=== PATIENT | male | born 1965 | race Caucasian/White ===

== ENCOUNTER 2024-02-09 17:21 | Emergency (ER) | payer SELFPAY ==
[2024-02-09 17:22] VITALS: BP 151/91
--- NOTE | 2024-02-09 18:23 | ED.GENMED ---
History of Present Illness
General
Chief Complaint: Skin Surface Trauma
Source: patient
Exam Limitations: none
Time Seen by Provider: 02/09/24 18:01
Nursing documentation reviewed up to this point in time: agreed with
Travel History
Have you had any contact with someone who has COVID-19?: No
Do you have any symptoms of coronavirus? Fever > 100 degrees, chills, cough, shortness of breath, sore throat, loss of taste or smell, muscle aches, or headache?: No
History of Present Illness
History of Present Illness:
59-year-old male with history of CAD, status post stent x 3 presents for a slip and fall while at work today causing a laceration on his left anterior lower leg. Patient says that the stool he was on broke and he slid down scraping his leg on part
of the step. He went to urgent care initially where he was given a tetanus vaccine but unfortunately the provider was unable to sew up his wound because of a personal hand injury. Patient is here for sutures. He has some pain localized to where
the skin is but no significant swelling. No uncontrolled bleeding. No blood thinners. This is a Workmen's Comp. injury
Past History
Past History
ED Past Medical History: CAD and Other (Ulcerative colitis)
ED Past Surgical History: Cardiac
Social History
Tobacco: Non-smoker
Alcohol: None
Personal:
Review of Systems
Review of Systems
Allergies reviewed?: Yes
All Other Systems: Not applicable
Phy Exam
Physical Exam
Physical Exam:
GENERAL: Alert , in no apparent distress, comfortable at rest
HEAD: NCAT
NEUROLOGICAL: Alert and oriented, no focal neuro deficits, , 5/5 strength, sensation intact,
SKIN: Warm and dry, irregular flap laceration 1 cm anterior left lower leg
no significant swelling
MUSCULOSKELETAL:laceration left lower leg anterior
no active bleeding
slightly tender to palpation but full rom of the leg, weight bearing
no suspicion of retained fb
PSYCH: Normal and appropriate interaction.
Course
Vital Signs
Initial and Last Documented VS:
Initial Vital Signs
Temp Pulse Resp BP Pulse Ox
98.0 F 61 18 151/91 98
02/09/24 17:22 02/09/24 17:22 02/09/24 17:22 02/09/24 17:22 02/09/24 17:22
Last Documented Vital Signs
Temp Pulse Resp BP Pulse Ox
98.0 F 61 18 151/91 98
02/09/24 17:22 02/09/24 17:22 02/09/24 17:22 02/09/24 17:22 02/09/24 17:22
Procedures
Laceration Closure
Left Lower Leg:
Status of Wound: clean
Size of Wound in cm: 2
Description of Wound Edges: ragged
Preparation: cleaned with saline
Anesthesia: 1% Lidocaine with epi
Revision/Debridement: minor revision and irrigate-direct pressure
Wound exploration: foreign body removed (tissue (pt used a tissue to holdpressure))
Type of Closure: single layer closure
Skin Closure Material: 4-0 nylon
Number of sutures: 4
*Critical Care Note
Total Time (30-74mins, 75-104mins- exclusive of procedures): Not Applicable
ED Attending Note
-
Portions of this chart may have been created with voice recognition software.� Occasional wrong word or��sound alike� substitutions may have occurred due to the inherent limitations of voice recognition software.
Discharge Plan
Departure
Patient Disposition: Home (Routine Discharge)
Date of Disposition: 02/09/24
Time of Disposition: 18:52
Patient with high blood pressure during this ER visit?: Yes
Condition: Fair
Covid-19: Not Applicable
Discharge Problem:
Laceration of left lower extremity
Instructions: Laceration Repair With Stitches (DC), BLOOD PRESSURE
Prescriptions:
No Action
multivitamin [Daily Vitamin] 1 EACH tablet
1 ea PO DAILY
acetaminophen 325 MG tablet
325 mg PO Q4HPRN PRN (Reason: pain)
qityawbv-ihsfk-qikbd-CF borate [[facility]] 1 EACH tablet
2 tab PO DAILY
aspirin 81 MG tablet,chewable
81 mg PO DAILY
lisinopril 2.5 MG tablet
2.5 mg PO DAILY
ezetimibe 10 MG tablet
10 mg PO DAILY
rosuvastatin 40 MG tablet
10 mg PO DAILY
metoprolol succinate 12.5 MG tablet extended release 24 hr
12.5 mg PO DAILY Qty: 30 0RF
Vitamin C:
1,000 mg PO HS
Vitamin D3:
1,000 units PO DAILY
hydrocodone-acetaminophen 1 TABLET tablet
1 tab PO Q4HPRN PRN (Reason: moderate to severe pain) Qty: 25 0RF
tamsulosin 0.4 MG capsule
0.4 mg PO DAILY Qty: 30 0RF
cyclobenzaprine 10 MG tablet
10 mg PO BIDPRN PRN (Reason: spasm) Qty: 14 0RF
diclofenac potassium 50 MG tablet
50 mg PO BID Qty: 20 0RF
Referrals:
Sidney Phillip DO [Family Provider] - Follow up in 10 days (for suture removal)
Activity Restrictions/Additional Instructions:
KEEP THE WOUND CLEAN AND DRY FOR 24 HOURS
AFTER THAT YOU CAN GET IT WET IN THE BATH/SHOWER ONCE A DAY AND MAKE SURE IT IS CLEAN AND THERE IS NO DRIED BLOOD ON THE STITCHES
APPLY NEOSPORIN AND A BANDAID
THE STITCHES NEED TO BE REMOVED IN ABOUT 7-10 DAYS, SEE YOUR DOCTOR FOR THIS. (OR WORKMAN'S COMP)
THE LAST DAY BEFORE STITCHES OUT, NO OINTMENT, LEAVE OPEN TO AIR
WATCH FOR SIGNS OF INFECTION AND RETURN NEEDED FOR PAIN, SWELLING, REDNESS, DRAINAGE, BLEEDING.
MOTRIN NEEDED FOR PAIN.
Interventions
Interventions:
*Risk Screen - Suicide Last Done: 02/09/24 17:22
*General Assessment Last Done: 02/09/24 17:22
*Neglect/Abuse Screening Last Done: 02/09/24 17:22
ED- Fall Risk Assessment Last Done: 02/09/24 18:57
*ED COVID-19 Vaccine History Last Done: 02/09/24 17:22
*Nursing Disposition Last Done: 02/09/24 18:57
Discharge Date and Time
Discharge Date/Time: 02/09/24 18:58
Print Language: BELIZEAN
== END 2024-02-09 18:58 | disposition home or self-care (01) ==
LOC: EMR 17:21
PROVIDERS: EMERGENCY PHYSICIAN Emergency Medicine; FAMILY PHYSICIAN Family Medicine
DX: S81.812A Laceration without foreign body, left lower leg, initial encounter (principal); W01.0XXA Fall on same level from slipping, tripping and stumbling without subsequent striking against object, initial encounter; I25.10 Atherosclerotic heart disease of native coronary artery without angina pectoris
CPT/HCPCS: 99283

== ENCOUNTER 2024-09-03 13:28 | Emergency (ER) | payer BC, SELFPAY ==
[2024-09-03 13:43] VITALS: BP 152/87
--- NOTE | 2024-09-03 14:29 | ED.MUSCINJ ---
HPI-Injury
General
Chief Complaint: Musculo-Skeletal Complaint
Time Seen by Provider: 09/03/24 14:05
History of Present Illness-Injury
Initial Injury comments:
59-year-old male with history of CAD, hypertension, total colectomy presenting to the emergency department with left thigh pain. Patient reports yesterday he thought he was going to fall, tried to catch himself process, felt a pop in his left thigh
region. He has since had pain in the left gluteal region with radiation down his left thigh. Denies fall to the ground. Denies numbness or tingling to the leg. Denies weakness. He has been taking ibuprofen and a muscle relaxer at home. He has
been able to ambulate. He denies chest pain, difficulty breathing, abdominal pain. He denies fever or recent illness. He denies additional acute medical complaints.
Past History
Past History
ED Past Medical History: CAD and Other (Ulcerative colitis)
ED Past Surgical History: Cardiac
Social History
Tobacco: Non-smoker
Alcohol: None
Personal:
Phy Exam
Physical Exam
Physical Exam:
General: Well-appearing, no clinical signs of dehydration, nontoxic and in no acute distress
HEENT: protecting airway
Neck: appears supple
CV: Normal heart rate
Resp: No accessory muscle use, no increased work of breathing
Abd: No distention
Extremities: Range of motion intact to the left lower extremity. Distal sensation and pulses intact. No erythema. Generalized tenderness to the left gluteal region extending into the left upper thigh.
Neuro: alert, no focal neurologic deficit
: deferred
Rectal: deferred
Psych: Normal affect
Skin: Intact
Injury Course
Orders/Labs/Results
Orders:
Orders
09/03/24 14:28
Ketorolac [Toradol] 15 mg IM NOW STA
MDM/Problems Addressed
MDM/Problems Addressed:
59-year-old male presenting for left lower extremity pain. Vital signs on arrival are normal.
On exam patient is well-appearing, no acute distress. Overall benign examination of the left lower extremity. No deformity, no swelling. Patient able to ambulate. Distal sensation and pulses intact. Without any neurovascular compromise. No
infectious findings. Ultimately suspect musculoskeletal injury, possible hamstring injury. No indication for advanced imaging at this time. Feel stable for discharge with outpatient supportive therapy. Will provide a prescription for steroid
pack. Advised continued use of NSAIDs. Patient also has muscle relaxers at home. Cautioned against somnolence. Advised outpatient orthopedic follow-up if symptoms are persisting, may indicate need for MRI. Return precautions discussed and
patient verbalized understanding
*Critical Care Note
Total Time (30-74mins, 75-104mins- exclusive of procedures): Not Applicable
ED Attending Note
-
Portions of this chart may have been created with voice recognition software.� Occasional wrong word or��sound alike� substitutions may have occurred due to the inherent limitations of voice recognition software.
Discharge Plan
Departure
Prescriptions:
No Action
multivitamin [Daily Vitamin] 1 EACH tablet
1 ea PO DAILY
acetaminophen 325 MG tablet
325 mg PO Q4HPRN PRN (Reason: pain)
goeqotos-ulqxs-uoqoq-CF borate [[facility]] 1 EACH tablet
2 tab PO DAILY
aspirin 81 MG tablet,chewable
81 mg PO DAILY
lisinopril 2.5 MG tablet
2.5 mg PO DAILY
ezetimibe 10 MG tablet
10 mg PO DAILY
rosuvastatin 40 MG tablet
10 mg PO DAILY
metoprolol succinate 12.5 MG tablet extended release 24 hr
12.5 mg PO DAILY Qty: 30 0RF
Vitamin C:
1,000 mg PO HS
Vitamin D3:
1,000 units PO DAILY
hydrocodone-acetaminophen 1 TABLET tablet
1 tab PO Q4HPRN PRN (Reason: moderate to severe pain) Qty: 25 0RF
tamsulosin 0.4 MG capsule
0.4 mg PO DAILY Qty: 30 0RF
cyclobenzaprine 10 MG tablet
10 mg PO BIDPRN PRN (Reason: spasm) Qty: 14 0RF
diclofenac potassium 50 MG tablet
50 mg PO BID Qty: 20 0RF
Interventions
Interventions:
*Risk Screen - Suicide Last Done: 09/03/24 13:44
*General Assessment Last Done: 09/03/24 14:01
*Neglect/Abuse Screening Last Done: 09/03/24 13:44
*ED COVID-19 Vaccine History Last Done: 09/03/24 14:01
ED-Musculoskeletal Assessment Last Done: 09/03/24 14:01
Discharge Date and Time
Print Language: SPANISH
[2024-09-03] MEDS: TORADOL 15 MG IM (14:43)
[2024-09-03 14:48] VITALS: BP 150/80
== END 2024-09-03 15:17 | disposition home or self-care (01) ==
LOC: EMR 13:28
PROVIDERS: EMERGENCY PHYSICIAN Student in an Organized Health Care Education/Training Program
DX: S76.912A Strain of unspecified muscles, fascia and tendons at thigh level, left thigh, initial encounter (principal); X58.XXXA Exposure to other specified factors, initial encounter; I25.10 Atherosclerotic heart disease of native coronary artery without angina pectoris; I10 Essential (primary) hypertension; K51.90 Ulcerative colitis, unspecified, without complications
CPT/HCPCS: 99282; 96372

== ENCOUNTER → 2024-09-28 07:40 | Outpatient (REF) | payer BC, SELFPAY | LOC: HWRAD 07:40 | PROVIDERS: ATTENDING PHYSICIAN Specialist; FAMILY PHYSICIAN Family Medicine | DX: N20.0 Calculus of kidney (principal); Z80.42 Family history of malignant neoplasm of prostate | CPT/HCPCS: 74018; 76770 ==

== ENCOUNTER 2024-11-25 08:35 | Emergency (ER) | payer BC, SELFPAY ==
[2024-11-25 08:36] VITALS: BP 147/91
[2024-11-25 09:01] LABS: COVID-19 Antigen Positive (Negative)
--- NOTE | 2024-11-25 09:12 | ED.GENMED ---
History of Present Illness
General
Chief Complaint: Dehydration Symptoms
Source: patient and spouse
Exam Limitations: none
Time Seen by Provider: 11/25/24 09:04
History of Present Illness
History of Present Illness:
See MDM
Past History
Past History
ED Past Medical History: CAD and Other (Ulcerative colitis)
ED Past Surgical History: Cardiac
Social History
Tobacco: Non-smoker
Alcohol: None
Personal:
Phy Exam
Physical Exam
Physical Exam:
See MDM
Course
Orders/Labs/Results
Orders:
Orders
11/25/24 08:42
COVID-19 Antigen Urgent
Source: Nasal Swab
Influenza A+B Rapid Molecular Urgent
CELINE Source: Nasal Swab
Specimen Description:
11/25/24 09:11
0.9% Sodium Chloride 1000 ml [Nss] 1,000 ml IV BOLUS
11/25/24 09:46
Complete Blood Count/With Diff Urgent
Comprehensive Metabolic Panel Urgent
Magnesium Urgent
STOOL [C difficile Antigen & Toxins] Urgent
CELINE Source: Feces/Stool
Specimen Description:
Date Specimen was Collected: 11/25/24
Time Specimen was Collected: 09:43
Stool Culture Urgent
CELINE Source: Feces/Stool
Specimen Description:
Date Specimen was Collected: 11/25/24
Time Specimen was Collected: 09:43
11/25/24 10:30
0.9% Sodium Chloride 1000 ml [Nss] 1,000 ml IV BOLUS
Abnormal Lab Results
11/25/24 11/25/24
08:42 09:46
MCH 31.5 H pg
(27.0-31.0)
MCHC 37.1 H g/dL
(33.0-37.0)
Abs Immat Gran (auto) 0.1 H 10^3/uL
(0-0.05)
Absolute Monos (auto) 1.2 H 10^3/uL
(0.1-0.6)
Immature Gran % 0.8 H %
(0-0.5)
Lymphocytes % 16.1 L %
(20.5-51.1)
Monocytes % 14.8 H %
(1.7-9.3)
Sodium 131 L mmol/L
(135-145)
Carbon Dioxide 20 L mmol/L
(22-30)
BUN 79 H mg/dl
(9-20)
Creatinine 2.2 H mg/dL
(0.7-1.3)
Magnesium 3.1 H mg/dl
(1.6-2.3)
AST 71 H U/L
(17-59)
ALT 72 H U/L
(0-50)
Total Protein 8.6 H g/dl
(6.3-8.2)
Albumin 5.2 H g/dl
(3.5-5.0)
SARS-CoV-2 Antigen Positive A
(Negative)
11/25/24 09:46
11/25/24 09:46
Vital Signs
Initial and Last Documented VS:
Initial Vital Signs
Temp Pulse Resp BP Pulse Ox
98.0 F 106 20 147/91 96
11/25/24 08:36 11/25/24 08:36 11/25/24 08:36 11/25/24 08:36 11/25/24 08:36
Last Documented Vital Signs
Temp Pulse Resp BP Pulse Ox
98.0 F 84 19 138/83 95
11/25/24 08:36 11/25/24 11:00 11/25/24 11:00 11/25/24 11:00 11/25/24 10:45
MDM/Problems Addressed
Differential Diagnosis Includes:
HPI and MDM Narrative:
59-year-old male presenting for evaluation of generalized fatigue. Patient believes he is dehydrated. He recently returned from vacation. Once he landed on his vacation, he developed flulike symptoms. This has been ongoing for the past several
days. Patient states he has been trying to drink plenty of fluid but he has significant amount of diarrhea. He states his colostomy bag fills up every 15 to 20 minutes. He denies fevers. He does complain of mild muscle cramping
Exam and story consistent with dehydration. Will provide IV fluids. He is otherwise well-appearing and nontoxic. Viral testing done prior to my evaluation and patient found to be COVID-positive. He is out of the Paxlovid window. Regardless,
will give IV fluids and obtain basic blood work. Will obtain stool cultures and CT
Physical exam
General: Well appearing and non-toxic
HEENT: protecting airway. Dry mucous membranes
Neck: appears supple
CV: No evidence of cyanosis
Resp: No accessory muscle use
Abd: Non-distended. Soft and nontender area around colostomy bag clean and intact
Extremities: No deformities
Neuro: alert
Psych: Normal affect
Skin: Intact
Problems Addressed including Acute and Chronic Conditions affecting care:
1. Dehydration
Acuity: acute
Prognosis: stable
Details: Will give IV fluids and obtain basic blood to look for metabolic abnormalities
2. Diarrhea
Acuity: acute
Prognosis: stable
Details: Likely viral. Will obtain stool culture
Updates
Patient was found to have an elevated creatinine level. After first liter IV fluids, patient still symptomatic. After second liter, patient feels much better and feels comfortable going home. C. difficile negative
Differential Diagnosis (but not limited to): Norovirus, C. difficile, COVID, dehydration
Testing considered: Norovirus testing
Drug therapy (if applicable): OTC meds, please see d/c instruction regarding Rx drugs
Amount and/or Complexity of Data Reviewed
Clinical info obtained from: Patient
External data reviewed: N/A
Labs I independently reviewed (but not limited to): Elevated creatinine, C. difficile negative
Radiology: N/A
Pulse Ox: not hypoxic
EKG independently reviewed: N/A
Labor Trainer: N/A
Critical Care: N/A
Risk of Complication:
Social Determinants of health: Good social support
Discussed with other providers: N/A
Escalation of Care includes Admit/Obs: After being observed in the Emergency Department, pt stable for discharge.
Occasional wrong word or 'sound a like' substitutions may have occurred due to the inherent limitations of voice recognition software. Read the chart carefully and recognize, using context, where substitutions have occurred.
*Critical Care Note
Total Time (30-74mins, 75-104mins- exclusive of procedures): Not Applicable
ED Attending Note
-
Portions of this chart may have been created with voice recognition software.� Occasional wrong word or��sound alike� substitutions may have occurred due to the inherent limitations of voice recognition software.
Discharge Plan
Departure
Patient Disposition: Home (Routine Discharge)
Date of Disposition: 11/25/24
Time of Disposition: 12:44
Patient with high blood pressure during this ER visit?: No
Discharge Problem:
Acute dehydration
Instructions: Dehydration, Adult (DC)
Prescriptions:
No Action
multivitamin [Daily Vitamin] 1 EACH tablet
1 ea PO DAILY
acetaminophen 325 MG tablet
325 mg PO Q4HPRN PRN (Reason: pain)
cvewtszv-rsixw-relet-CF borate [[facility]] 1 EACH tablet
2 tab PO DAILY
aspirin 81 MG tablet,chewable
81 mg PO DAILY
lisinopril 2.5 MG tablet
2.5 mg PO DAILY
ezetimibe 10 MG tablet
10 mg PO DAILY
rosuvastatin 40 MG tablet
10 mg PO DAILY
metoprolol succinate 12.5 MG tablet extended release 24 hr
12.5 mg PO DAILY Qty: 30 0RF
Vitamin C:
1,000 mg PO HS
Vitamin D3:
1,000 units PO DAILY
hydrocodone-acetaminophen 1 TABLET tablet
1 tab PO Q4HPRN PRN (Reason: moderate to severe pain) Qty: 25 0RF
tamsulosin 0.4 MG capsule
0.4 mg PO DAILY Qty: 30 0RF
cyclobenzaprine 10 MG tablet
10 mg PO BIDPRN PRN (Reason: spasm) Qty: 14 0RF
diclofenac potassium 50 MG tablet
50 mg PO BID Qty: 20 0RF
methylprednisolone [Medrol (Arturo)] 4 mg tablets,dose pack
See Rx Instructions .ROUTE .COMPLEX Qty: 21 0RF
Rx Instructions:
for 6 days
Referrals:
Sidney Phillip DO [Family Provider] -
Activity Restrictions/Additional Instructions:
Please return for any worsening symptoms.
You may return at any time if you have further concerns.
Please follow up with your doctor at the first available appointment, preferably this week.
Thank you for choosing [facility].
Interventions
Interventions:
*General Assessment Last Done: 11/25/24 09:53
ED- Fall Risk Assessment Last Done: 11/25/24 09:54
*ED COVID-19 Vaccine History Last Done: 11/25/24 09:53
QB-Oyffoh-Dwzdzjqtqc Assessment Last Done: 11/25/24 09:55
ED- Cardiac Assessment Last Done: 11/25/24 09:55
ED- Neurological Assessment Last Done: 11/25/24 09:55
ED- Pulmonary Assessment Last Done: 11/25/24 09:55
Discharge Date and Time
Print Language: ITALIAN
[2024-11-25 09:53] VITALS: BMI 29.4
[2024-11-25 09:57] VITALS: BP 138/93
[2024-11-25 10:00] VITALS: BP 138/87
[2024-11-25 10:01] LABS: % Basophils 0.4 % (0-2); % Eosinophils 0.3 % (0-6); % Immature Granulocytes 0.8 % (0-0.5); % Lymphocytes 16.1 % (20.5-51.1); % Monocytes 14.8 % (1.7-9.3); % Neutrophils 67.6 % (42.2-75.2); Absolute Immature Granulocytes 0.1 10^3/uL (0-0.05); Absolute Lymphocytes 1.3 10^3/uL (1.2-3.4); Absolute Monocytes 1.2 10^3/uL (0.1-0.6); Absolute Neutrophils 5.3 10^3/uL (1.4-6.5); Hematocrit 48.3 % (39.0-52.0); Hemoglobin 17.9 g/dL (13.0-18.0); Mean Corp Hgb Conc. 37.1 g/dL (33.0-37.0); Mean Corpuscular Hgb 31.5 pg (27.0-31.0); Mean Corpuscular Volume 84.9 fL (80.0-94.0); Mean Platelet Volume 9.9 fL (7.4-10.4); Nucleated Red Blood Cells % 0 % (-); Platelet Count 189 10^3/uL (130-400); Red Blood Cell Count 5.69 10^6/uL (4.70-6.10); Red Cell Dist. Width 11.9 % (11.5-14.5); White Blood Cell Count 7.9 10^3/uL (4.8-10.8)
[2024-11-25] MEDS: NSS 1000 IV ×2 (10:07→10:46)
[2024-11-25 10:12] LABS: ALT (SGPT) 72 U/L (0-50); AST (SGOT) 71 U/L (17-59); Albumin 5.2 g/dl (3.5-5.0); Alkaline Phosphatase 87 U/L (38-126); Blood Urea Nitrogen 79 mg/dl (9-20); Calcium 9.6 mg/dl (8.4-10.2); Carbon Dioxide 20 mmol/L (22-30); Chloride 98 mmol/L (98-107); Estimated Creatinine Clearance 38 ml/min; Glucose 96 mg/dl (70-99); Magnesium 3.1 mg/dl (1.6-2.3); Potassium 4.3 mmol/L (3.5-5.1); Sodium 131 mmol/L (135-145); Total Protein 8.6 g/dl (6.3-8.2); eGFR 34.08
[2024-11-25 11:00] VITALS: BP 138/83
[2024-11-25 12:07] VITALS: BP 150/91
[2024-11-25 13:00] VITALS: BP 154/91
== END 2024-11-25 13:23 | disposition home or self-care (01) ==
LOC: EMR 08:35
PROVIDERS: Emergency Medicine; EMERGENCY PHYSICIAN Student in an Organized Health Care Education/Training Program; FAMILY PHYSICIAN Family Medicine
DX: E86.0 Dehydration (principal); I25.10 Atherosclerotic heart disease of native coronary artery without angina pectoris; K51.90 Ulcerative colitis, unspecified, without complications
CPT/HCPCS: 99283; 96360; 96361; 80053; 83735; 85025; 87045; 87046; 87324; 87427; 87449; 87502; 87811

== ENCOUNTER → 2024-12-14 10:12 | Outpatient (REF) | payer BC, SELFPAY | LOC: RCS 10:12 | PROVIDERS: ATTENDING PHYSICIAN Internal Medicine Cardiovascular Disease; FAMILY PHYSICIAN Family Medicine | DX: I25.10 Atherosclerotic heart disease of native coronary artery without angina pectoris (principal); I10 Essential (primary) hypertension | CPT/HCPCS: 93017 ==

== ENCOUNTER 2025-01-01 02:07 | Emergency (ER) | payer BC, SELFPAY ==
[2025-01-01 02:08] VITALS: BMI 28.9
[2025-01-01 02:09] VITALS: BP 170/86
[2025-01-01 02:34] LABS: % Basophils 0.9 % (0-2); % Eosinophils 4.6 % (0-6); % Immature Granulocytes 0.4 % (0-0.5); % Lymphocytes 32.6 % (20.5-51.1); % Monocytes 7.5 % (1.7-9.3); Absolute Basophils 0.1 10^3/uL (0-0.2); Absolute Eosinophils 0.3 10^3/uL (0-0.7); Absolute Lymphocytes 2.2 10^3/uL (1.2-3.4); Absolute Monocytes 0.5 10^3/uL (0.1-0.6); Absolute Neutrophils 3.7 10^3/uL (1.4-6.5); Hematocrit 41.8 % (39.0-52.0); Hemoglobin 14.8 g/dL (13.0-18.0); Mean Corp Hgb Conc. 35.4 g/dL (33.0-37.0); Mean Corpuscular Hgb 31.5 pg (27.0-31.0); Mean Corpuscular Volume 88.9 fL (80.0-94.0); Mean Platelet Volume 9.2 fL (7.4-10.4); Nucleated Red Blood Cells % 0 % (-); Platelet Count 173 10^3/uL (130-400); Red Cell Dist. Width 12.6 % (11.5-14.5); White Blood Cell Count 6.8 10^3/uL (4.8-10.8)
[2025-01-01 02:37] LABS: Urine Albumin 2+ (Neg - Trace); Urine Bilirubin Negative (Negative); Urine Character Slightly Cloudy (Clear); Urine Color Yellow; Urine Glucose Negative (Negative); Urine Ketone Negative (Negative); Urine Leukocyte Negative (Negative); Urine Nitrite Negative (Negative); Urine Occult Blood 4+ (Negative); Urine Specific Gravity 1.025 (<1.030); Urine Urobilinogen Negative (Neg - 1+)
[2025-01-01 02:47] LABS: Urine Squamous Cell >30 /LPF (Few)
[2025-01-01 02:49] LABS: Urine Amorphous Seen; Urine Uric Acid Crystals Seen
[2025-01-01 02:50] LABS: Urine Bacteria Many (Negative); Urine Red Blood Cell >100 /HPF (0-2)
[2025-01-01 02:52] LABS: Urine Mucus Many
[2025-01-01 02:55] LABS: ALT (SGPT) 55 U/L (0-50); AST (SGOT) 37 U/L (17-59); Alkaline Phosphatase 101 U/L (38-126); Blood Urea Nitrogen 25 mg/dl (9-20); Calcium 9.6 mg/dl (8.4-10.2); Carbon Dioxide 18 mmol/L (22-30); Chloride 105 mmol/L (98-107); Glucose 116 mg/dl (70-99); Potassium 3.8 mmol/L (3.5-5.1); Sodium 137 mmol/L (135-145); Total Bilirubin 0.8 mg/dl (0.2-1.3); Total Protein 7.6 g/dl (6.3-8.2); eGFR > 60.00
[2025-01-01 03:16] VITALS: BP 149/84
--- NOTE | 2025-01-01 04:35 | ED.GENMED ---
History of Present Illness
General
Chief Complaint: Flank Pain
Source: patient
Exam Limitations: none
Time Seen by Provider: 01/01/25 04:35
Nursing documentation reviewed up to this point in time: agreed with
History of Present Illness
History of Present Illness:
59-year-old male presents emergency department due to right flank pain. Feels similar when he had a kidney stone in the past.
Past History
Past History
ED Past Medical History: CAD, HTN and Other (Ulcerative colitis)
ED Past Surgical History: Cardiac
Social History
Tobacco: Non-smoker
Alcohol: None
Personal:
Review of Systems
Review of Systems
Allergies reviewed?: Yes
All Other Systems: Not applicable
Constitutional: Reports no symptoms
EENT: Reports no symptoms
Respiratory: Reports no symptoms
Cardiac: Reports no symptoms
ABD/GI: Reports nausea
: Reports flank pain and difficulty voiding
Musculoskeletal: Reports no symptoms
Skin: Reports no symptoms
Neurological: Reports no symptoms
Endocrine: Reports no symptoms
Hematologic/Lymphatic: Reports no symptoms
Psychiatric: Reports no symptoms
Phy Exam
Physical Exam
Physical Exam:
Physical Exam
General: Appears uncomfortable
Neck: supple. no meningeal signs. normal posterior pharynx
Heart: s1/s2 regular rate and rhythm, no murmur. equal radial
pulses.
HEENT: Pupils equal round reactive to light, EOMI
Lungs: no acute respiratory distress. clear bilaterally
Abdomen: normal bowel sounds. not tender. no CVAT, colostomy
Neuro: alert and oriented. no focal neurological deficits cranial nerves II through XII intact
Skin: no rash
Psychiatric: well kept. interactive and cooperative
Extremities: no edema. no calf tenderness. negative homans. good distal pulses
Course
Orders/Labs/Results
Orders:
Orders
01/01/25 02:22
Complete Blood Count/With Diff Urgent
Comprehensive Metabolic Panel Urgent
01/01/25 02:24
Urinalysis Urgent
Date Specimen was Collected: 01/01/25
Time Specimen was Collected: 02:12
Urine Microscopic Urgent
Date Specimen was Collected: 01/01/25
Time Specimen was Collected: 02:12
01/01/25 04:33
Ketorolac [Toradol] 15 mg IV NOW STA
Ondansetron Injectable [Zofran] 4 mg IV NOW STA
01/01/25 04:34
CT Abd/pel Without Iv Or Oral Urgent
Comment:
Reason For Exam: right flank pain, hematuria
Abnormal Lab Results
01/01/25 01/01/25
02:22 02:24
MCH 31.5 H pg
(27.0-31.0)
Carbon Dioxide 18 L mmol/L
(22-30)
BUN 25 H mg/dl
(9-20)
Glucose 116 H mg/dl
(70-99)
ALT 55 H U/L
(0-50)
Urine Occult Blood 4+ A
(Negative)
Urine RBC >100 A /HPF
(0-2)
Urine Bacteria Many A
(Negative)
Urine Albumin 2+ A
(Neg - Trace)
01/01/25 02:22
01/01/25 02:22
Vital Signs
Initial and Last Documented VS:
Initial Vital Signs
Temp Pulse Resp BP Pulse Ox
98.1 F 58 22 170/86 98
01/01/25 02:09 01/01/25 02:09 01/01/25 02:09 01/01/25 02:09 01/01/25 02:09
Last Documented Vital Signs
Temp Pulse Resp BP Pulse Ox
98.1 F 58 22 149/84 95
01/01/25 02:09 01/01/25 02:09 01/01/25 02:09 01/01/25 03:16 01/01/25 03:45
MDM/Problems Addressed
Differential Diagnosis Includes:
UTI, kidney stone
MDM/Problems Addressed:
59-year-old male with right ureteral calculus, no signs UTI. Stable for discharge.
*Radiology
Radiology exam reviewed: radiology read reviewed (CT abdomen pelvis shows right distal ureteral calculus 2 mm)
*Pulse Oximetry
Patient hypoxic: no
*Critical Care Note
Total Time (30-74mins, 75-104mins- exclusive of procedures): Not Applicable
Data Reviewed
Review of Other/Old Records Reveals: Radiology Studies
Source: records (Small stone seen on renal ultrasound bilateral 09/28/2024)
Patient Management
Social determinants of health affecting care: Living situation and Strong social support
Escalation/DeEscalation of care consider admission/obs:
Admit not indicated
ED Attending Note
-
Portions of this chart may have been created with voice recognition software.� Occasional wrong word or��sound alike� substitutions may have occurred due to the inherent limitations of voice recognition software.
Discharge Plan
Departure
Patient Disposition: Home (Routine Discharge)
Date of Disposition: 01/01/25
Time of Disposition: 06:05
Patient with high blood pressure during this ER visit?: Yes
Condition: Good
Discharge Problem:
Calculus of distal right ureter
Instructions: Kidney Stones (DC), How to Strain Your Urine, BLOOD PRESSURE
Prescriptions:
No Action
multivitamin [Daily Vitamin] 1 EACH tablet
1 ea PO DAILY
acetaminophen 325 MG tablet
325 mg PO Q4HPRN PRN (Reason: pain)
wjojmrml-xikgj-klklo-CF borate [[facility]] 1 EACH tablet
2 tab PO DAILY
aspirin 81 MG tablet,chewable
81 mg PO DAILY
lisinopril 2.5 MG tablet
2.5 mg PO DAILY
ezetimibe 10 MG tablet
10 mg PO DAILY
rosuvastatin 40 MG tablet
10 mg PO DAILY
metoprolol succinate 12.5 MG tablet extended release 24 hr
12.5 mg PO DAILY Qty: 30 0RF
Vitamin C:
1,000 mg PO HS
Vitamin D3:
1,000 units PO DAILY
hydrocodone-acetaminophen 1 TABLET tablet
1 tab PO Q4HPRN PRN (Reason: moderate to severe pain) Qty: 25 0RF
tamsulosin 0.4 MG capsule
0.4 mg PO DAILY Qty: 30 0RF
cyclobenzaprine 10 MG tablet
10 mg PO BIDPRN PRN (Reason: spasm) Qty: 14 0RF
diclofenac potassium 50 MG tablet
50 mg PO BID Qty: 20 0RF
methylprednisolone [Medrol (Arturo)] 4 mg tablets,dose pack
See Rx Instructions .ROUTE .COMPLEX Qty: 21 0RF
Rx Instructions:
for 6 days
Referrals:
Contreras Chen MD [Active] - Call in 1-3 days for appt
Jameson Brizuela DO [Family Provider] -
Interventions
Interventions:
*Risk Screen - Suicide Last Done: 01/01/25 02:09
*General Assessment Last Done: 01/01/25 03:16
*Neglect/Abuse Screening Last Done: 01/01/25 02:09
*ED COVID-19 Vaccine History Last Done: 01/01/25 03:16
LB-Pztvyh-Hnbwshjxzu Assessment Last Done: 01/01/25 03:18
ED-Male Genitourinary Assessment Last Done: 01/01/25 03:18
Discharge Date and Time
Print Language: DIVEHI
[2025-01-01] MEDS: ZOFRAN 4 MG IV (04:41)
[2025-01-01] MEDS: TORADOL 15 MG IV (04:41)
[2025-01-01 06:15] VITALS: BP 142/80
== END 2025-01-01 06:20 | disposition home or self-care (01) ==
LOC: EMR 02:07
PROVIDERS: Emergency Medicine; EMERGENCY PHYSICIAN Emergency Medicine; FAMILY PHYSICIAN Family Medicine
DX: N13.2 Hydronephrosis with renal and ureteral calculous obstruction (principal); I25.10 Atherosclerotic heart disease of native coronary artery without angina pectoris; I10 Essential (primary) hypertension
CPT/HCPCS: 96374; 96375; 99284; 74176; 80053; 81003; 81015; 85025